=== PATIENT | male | born 1995 | race Caucasian/White ===

== ENCOUNTER 2025-03-04 08:54 | Emergency (ER) | payer MEDICAID ==
[~2025-03-04] VITALS: Ht 175.3 cm; Wt 111.0 kg
[2025-03-04 09:04] VITALS: O2SAT 95
[2025-03-04 09:06] VITALS: BP 133/84; PULSE 77; RESP 15; TEMP 36.8; O2SAT 99
[2025-03-04] MEDS ORDERED: SODIUM CHLORIDE 0.9% 1,000 ML IV ONE (09:15)
[2025-03-04] MEDS ORDERED: ONDANSETRON HCL 4MG/2ML INJ IV STA (09:15)
[2025-03-04] MEDS ORDERED: KETOROLAC 30MG/ML VIAL IV STA (09:15)
[2025-03-04 09:42] LABS: HEMATOCRIT. 47.7 % (42.0-52.0); MEAN CORPUSCULAR HEMOGLOBIN 28.8 pg (28.0-32.0); MEAN CORPUSCULAR HGB CONC 33.6 g/dL (31.0-37.0); MEAN CORPUSCULAR VOLUME 85.6 fL (80.0-94.0); MEAN PLATELET VOLUME 8.8 fl (7.4-10.4); PLATELET 262 x1000/uL (130-400); RED BLOOD CELL COUNT 5.57 mill/uL (4.7-6.1); WHITE BLOOD COUNT 21.4 x1000/uL (4.5-11.0)
[2025-03-04 09:43] LABS: DIFFERENTIAL COMMENT 1
[2025-03-04 09:53] LABS: CHLORIDE 107 mEq/L (98-107); POTASSIUM 4.3 mEq/L (3.5-5.1); SODIUM 142 mEq/L (136-145)
[2025-03-04 09:54] LABS: CALCIUM 9.5 mg/dL (8.7-10.4); CARBON DIOXIDE 25 mEq/L (21-32)
[2025-03-04 09:59] LABS: CREATININE 0.9 mg/dL (0.6-1.3); GLUCOSE 115 mg/dL (70-105)
[2025-03-04 10:00] LABS: ETHANOL BLOOD < 10 mg/dL (<10); UREA NITROGEN BLOOD 17 mg/dL (9-23)
[2025-03-04 10:01] LABS: ALANINE AMINOTRANSFERASE 43 IU/L (10-49); ALBUMIN 4.8 g/dL (3.2-4.8); ASPARTATE AMINOTRANSFERASE 26 IU/L (<34); BILIRUBIN DIRECT 0.2 mg/dL (<=3.0)
[2025-03-04 10:02] LABS: BILIRUBIN TOTAL 0.7 mg/dL (0.1-1.0); PROTEIN TOTAL 7.7 g/dL (6.0-8.3)
[2025-03-04 10:12] LABS: PLATELET ESTIMATE NORMAL
== END 2025-03-04 09:45 | disposition left against medical advice (07) ==
LOC: ER 08:54
DX: R10.10 Upper abdominal pain, unspecified (principal); R11.2 Nausea with vomiting, unspecified
CPT/HCPCS: 80076; 80048; 80320; 83690; 85025; 36415; 99283; J7030; Z7610; G0480